=== PATIENT | female | born 1980 | race Caucasian/White ===

== ENCOUNTER 2017-04-10 10:25 | Emergency (ER) | payer OTHER ==
[~2017-04-10] VITALS: Ht 167.6 cm; Wt 93.0 kg
[~2017-04-10 10:25] MED LIST: ASPIRIN325 PO; COLACE100 MG PO; HYDROCODON-ACE1 EAC7 PO; HYDROCODONE-AP1 EAC6 PO; IBUPROFEN 200200 M1 PO; OXYCODONE HCL 55 MG PO; OXYCODONE HCL5 M1 PO; PRILOSEC 20 MG20 MG PO; PROZAC20 MG PO; XARELTO10 MG PO
[2017-04-10 11:03] LABS: URINE BILIRUBIN NEGATIVE (Negative); URINE BLOOD NEGATIVE (Negative); URINE CLARITY SL CLOUDY; URINE COLOR YELLOW; URINE GLUCOSE-RANDOM NEGATIVE (Negative); URINE KETONES NEGATIVE (Negative); URINE LEUKOCYTES-REFLEX NEGATIVE (Negative); URINE NITRITE-REFLEX NEGATIVE (Negative); URINE PROTEIN TRACE (Negative); URINE UROBILINOGEN 0.2 E.U./dl (0.2-1.0)
[2017-04-10 11:14] LABS: HEMOGLOBIN 13.6 gm/dL (12.0-15.0); MCH 30.8 pg (26.0-34.0); MPV 8.2 fl. (7.2-11.1); RBC 4.43 mil/uL (4.20-5.00); RDW-CV 13.2 % (10.5-14.5); WBC 8.1 thou/uL (4.0-11.0)
[2017-04-10 11:16] LABS: SQUAMOUS >10 Many /LPF (0-3)
[2017-04-10 11:17] LABS: CRYSTALS None Seen /LPF (None Seen); HYALINE CASTS 0-3 Few /LPF (None Seen); MUCUS 0-3 Light strn/LPF (None Seen)
[2017-04-10 11:19] LABS: BACTERIA-REFLEX >30 Many /HPF (None Seen)
[2017-04-10 11:20] LABS: URINE RBC 0-2 Rare /HPF (0-2); URINE WBC-REFLEX 6-15 Few /HPF (0-5)
[2017-04-10 11:35] LABS: ALBUMIN 3.7 g/dL (3.4-5.0); ALKALINE PHOSPHATASE 81 U/L (46-116); ANION GAP 9 mmol/L (7-16); BUN 14 mg/dL (7-18); CHLORIDE 105 mmol/L (98-107); CO2 23 mmol/L (21-32); GLUCOSE 92 mg/dL (70-99); NT-PRO BRAIN NAT PEPTIDE 33 pg/mL (<300); POTASSIUM 3.9 mmol/L (3.5-5.1); SGOT 23 U/L (15-37); SGPT 37 U/L (30-65); SODIUM 137 mmol/L (136-145); TOTAL BILIRUBIN 0.2 mg/dL (<0.1-1.0); TOTAL PROTEIN 7.7 g/dL (6.4-8.2); TROPONIN-I LEVEL <0.06 ng/mL (<0.06)
[2017-04-10 11:52] LABS: CALCIUM 9.2 mg/dL (8.5-10.1)
[2017-04-10 12:21] VITALS: BP 159/106
--- NOTE | 2017-04-11 13:51 | EKG ---
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
== END 2017-04-10 12:21 | disposition home or self-care (01) ==
LOC: M.ERS 10:25
PROVIDERS: Physician Assistant
DX: R00.2 Palpitations (principal)

== ENCOUNTER → 2018-10-10 | Outpatient (CLI) | payer OTHER | LOC: M.RAD 11:28 | DX: Z12.31 Encounter for screening mammogram for malignant neoplasm of breast (principal) ==

== ENCOUNTER 2019-01-18 08:57 | Emergency (ER) | payer OTHER ==
[~2019-01-18] VITALS: Ht 167.6 cm; Wt 90.7 kg
[2019-01-18 09:31] LABS: ABSOLUTE BASOPHILS 0.1 thou/uL (0.0-0.2); ABSOLUTE EOSINOPHILS 0.1 thou/uL (0.0-0.7); ABSOLUTE LYMPHOCYTES 2.1 thou/uL (0.8-5.3); ABSOLUTE MONOCYTES 0.4 thou/uL (0.0-1.2); ABSOLUTE NEUTROPHILS 3.9 thou/uL (1.6-8.1); BASOPHILS 0.8 %; EOSINOPHILS 1.6 %; HEMATOCRIT 39.1 % (37.0-47.0); HEMOGLOBIN 13.6 gm/dL (12.0-15.0); LYMPHOCYTES 31.6 %; MCH 31.6 pg (26.0-34.0); MCHC 34.7 g/dL (28.0-37.0); MCV 91.1 fL (80.0-100.0); MONOCYTES 5.5 %; MPV 8.5 fl. (7.2-11.1); NUCLEATED RBCS 0 /100WBC; PLATELET COUNT* 301 thou/uL (150-400); POLYS 60.5 %; RDW-CV 12.9 % (10.5-14.5); WBC 6.5 thou/uL (4.0-11.0)
[2019-01-18 09:44] LABS: PROTIME 9.8 Seconds (9.20-11.50)
[2019-01-18 10:12] LABS: CALCIUM 8.4 mg/dL (8.5-10.1); CREATININE 0.9 mg/dL (0.6-1.3)
[2019-01-18 10:16] LABS: ALBUMIN 3.6 g/dL (3.4-5.0); TOTAL BILIRUBIN 0.2 mg/dL (<0.1-1.0); TOTAL PROTEIN 7.4 g/dL (6.4-8.2)
[2019-01-18] MEDS ORDERED: HYDROCHLOROTHIA25 M2 PO (11:44)
[2019-01-18] MEDS ORDERED: BUTALB-APAP-CA1 EACH PO (11:44)
[2019-01-18] MEDS ORDERED: PRINIVIL5 MG PO (12:01)
[2019-01-18 12:18] VITALS: BP 164/97
--- NOTE | 2019-01-18 14:34 | EKG ---
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
== END 2019-01-18 12:18 | disposition home or self-care (01) ==
LOC: M.ERS 08:57
PROVIDERS: Personal Emergency Response Attendant
DX: I10 Essential (primary) hypertension (principal); Z98.890 Other specified postprocedural states